=== PATIENT | male | born 1975 | race Caucasian/White ===

== ENCOUNTER 2019-08-03 05:45 | Day surgery (SDC) | payer OTHER ==
[2019-07-31 11:28] LABS: HEMATOCRIT 49.9 % (42.0-54.0); MCH 32.3 pg (26.0-34.0); MCHC 34.1 g/dL (31.0-37.0); MCV 94.7 fL (80.0-100.0); MEAN PLATELET VOLUME 9.8 fL (7.4-10.4); RBC 5.27 10x6/uL (4.20-6.10); RDW 12.8 % (11.5-14.5); WBC 7.4 10x3/uL (4.8-10.8)
[~2019-08-03] VITALS: Ht 180.3 cm; Wt 88.0 kg
[~2019-08-03 05:45] MED LIST: BYSTOLIC10 MG PO; MELATONIN10 M1 PO
[2019-08-03 06:12] VITALS: BP 128/78; Ht 180.3 cm; Wt 88.0 kg
--- NOTE | 2019-08-03 08:46 | NUR ---
0835-REC'D FROM SURGERY. DROWSY, EASILY AROUSED WITH VERBAL STIMULI. DENIES PAIN,IV PATENT TO RIGHT HAND AT KVO. NO NAUSEA OR VOMITING. ABD SOFT NOT DISTENDED. TOLERATING ICE WATER. CL IN EASY REACH.SPOUSE AT BEDSIDE. REVIEWED DISCHARGE CRITERIA.
--- NOTE | 2019-08-03 09:21 | NUR ---
0910- PT AMBULATED TO RESTROOM AND URINATED WITHOUT COMPLICATIONS. DENIES PAIN. REMOVED IV FROM RIGHT HAND WITH CATH INTACT,DISPOSED INTO SHARPS.COVERED SITE WITH GAUZE AND BANDAID. REVIEWED POST OPERATIVE FOLLOW UP AND DISCHARGE INSTRUCTIONS WITH PT- AT [facility]. VERBALIZED UNDERERSTANDING WITHOUT QUESTIONS OR CONCERNS.VSS. NO NAUSEA OR VOMITING. TOLERATED FULL LIQUID TRAY
--- NOTE | 2019-08-03 09:23 | NUR ---
0919-PT DRESSED. ESCORTED OUT VIA W/C BY VOLUNTEER. SPOUSE WITH PT TO DRIVE HOME.
--- NOTE | 2019-08-03 11:14 | OP ---
PATIENT NAME: EM CID MEDICAL RECORD: [id number] :77 LOCATION:D.OPS ADMISSION DATE: SURGEON: ENOCH WOODY MD DATE OF OPERATION: 08/03/2019 SURGEON: Enoch Woody MD ANESTHESIA: TIVA by Baldomero Aranda CRNA DIAGNOSIS: Elevated PSA of 16.30 on 07/04/2019. PROCEDURE: Cystoscopy, transrectal ultrasound, and prostate biopsy. FINDINGS: On cystoscopy, nonobstructive prostate. Single ureteral orifices bilaterally with no bladder tumors. Transrectal ultrasound showed a 23 gram prostate. SPECIMENS: Prostate biopsy cores. BLOOD LOSS: None. CLINICAL HISTORY: This is a 43-year-old male, who had an elevated PSA of 10.91 on 11/24/2017. He did not wish to have a prostate biopsy at that time, but he wished to continue to observe the PSA. His latest PSA is 16.30. We will be performing a prostate biopsy to check for prostate cancer. He refused to have a digital rectal examination done. He is not allergic to any medications. 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 DESCRIPTION OF PROCEDURE: The patient was given IV sedation. He was then placed in the lithotomy position and prepped and draped. A 17-English cystoscope was used for visualization. Findings as outlined above. The bladder was then emptied through the cystoscope sheath and the scope was removed. We then introduced the transrectal ultrasound probe and prostate size measurements were obtained. We then obtained sextant biopsies with at least 3 cores from each sextant. Once all the specimens were obtained, the procedure was terminated. I will see the patient in followup next week to review the pathology results with him. TRANSINT:[id number] Voice Confirmation ID: [id number] DOCUMENT ID: [id number] ENOCH WOODY MD at 1114 CC: [id number] DICTATION DATE: 08/03/19 0834 REPAIR SERVICER: 08/03/19 1046 [facility] 08/03/19 [place] [id number] [place] [id number]
== END 2019-08-03 09:19 | disposition home or self-care (01) ==
LOC: D.OPS 05:45 → D.PAN 07:30 → D.OPS 09:19 → D.PAN 12:00
PROVIDERS: Anesthesiology; ATTEND Urology
DX: R97.20 Elevated prostate specific antigen [PSA] (principal)